=== PATIENT | male | born 1995 | race Caucasian/White ===

== ENCOUNTER 2020-08-21 21:19 | Inpatient (IN) | payer OTHER ==
[~2020-08-21] VITALS: Ht 175.3 cm; Wt 81.4 kg
[2020-08-21] MEDS ORDERED: ONDANSETRON 4MG/2ML VIAL IV ONE (21:55)
[2020-08-21] MEDS ORDERED: NS 1,000 ML IV ONE (21:55)
[2020-08-21] MEDS ORDERED: MORPHINE 4 MG/ML 1ML VIAL/SYRINGE (J2270) IV ONE (21:55)
[2020-08-21 22:52] LABS: BASO % 0.1 % (0.0-1.0); HEMATOCRIT 43.9 % (42.0-52.0); HEMOGLOBIN 14.8 g/dl (13.5-17.5); LYMPH # 0.5 10^3/uL (1.5-5.0); LYMPH % 2.7 % (24.0-44.0); MEAN CORPUSCULAR HEMOGLOBIN 30.1 pg (27.0-33.0); MEAN CORPUSCULAR HGB CONC 33.7 g/dl (32.0-36.5); MEAN CORPUSCULAR VOLUME 89.2 fl (80.0-96.0); MONO # 1.2 10^3/uL (0.0-0.8); MONO % 7.1 % (2.0-8.0); NEUTROPHILS % 89.6 % (36.0-66.0); PLATELET COUNT, AUTOMATED 220 10^3/uL (150-450); RED BLOOD COUNT 4.92 10^6/uL (4.30-6.10); WHITE BLOOD COUNT 16.8 10^3/uL (4.0-10.0)
[2020-08-21 23:02] LABS: INR 1.04; PROTHROMBIN TIME 13.9 SECONDS (12.5-14.3)
--- NOTE | 2020-08-21 23:25 | REPVR ---
PROCEDURE INFORMATION: Exam: CT Abdomen And Pelvis Without Contrast Exam date and time: 08/21/2020 10:46 PM Age: 24 years old Clinical indication: Abdominal pain; Localized; Right lower quadrant (rlq); Additional info: Rlq pain TECHNIQUE: Imaging protocol: Computed tomography of the abdomen and pelvis without contrast. Radiation optimization: All CT scans at this facility use at least one of these dose optimization techniques: automated exposure control; mA and/or kV adjustment per patient size (includes targeted exams where dose is matched to clinical indication); or iterative reconstruction. COMPARISON: No relevant prior studies available. FINDINGS: Lungs: No suspicious mass or airspace process in the visualized lung bases. Liver: Noncontrast liver shows no obvious lesion. Gallbladder and bile ducts: Gallstones are present in the gallbladder lumen. No adjacent fluid or duct dilatation. Pancreas: Noncontrast pancreas shows no obvious mass or adjacent fluid. Spleen: Noncontrast spleen shows no obvious focal deformity. Adrenal glands: Adrenal glands are normal in appearance. Kidneys and ureters: Kidneys show no stone or hydronephrosis. Stomach and bowel: No evidence of small bowel obstruction. Appendix: Appendix is abnormal. Appendicoliths are present the base of the appendix and the enlarged fluid-filled inflamed appendix extends posterior and retrocecal, with distal tip in the Dodge's pouch region. Appendix measures up to 2 cm in diameter with significant adjacent periappendiceal stranding and periappendiceal lymphadenopathy. No identifiable abscess. Periappendiceal fluid is present. Intraperitoneal space: No pneumoperitoneum. Vasculature: No aortic aneurysm. Lymph nodes: No enlarged lymph nodes. Urinary bladder: Urinary bladder appears normal. Reproductive: No overt enlargement of the prostate gland. Bones/joints: Bony structures show no acute fracture or destructive process. Exam limitations: Limited evaluation without enteric or IV contrast. IMPRESSION: Acute appendicitis involving a retrocecal appendix which measures nearly 2 cm in diameter, lying just caudal to the right kidney. No periappendiceal abscess . Perforation cannot be definitively excluded. Electronically signed by: Kade Gregory On 08/21/2020 23:25:36 PM
[2020-08-21 23:26] LABS: ALBUMIN 4.3 GM/DL (3.2-5.2); ALT/SGPT 17 U/L (12-78); BILIRUBIN,DIRECT 0.4 MG/DL (0.0-0.2); BILIRUBIN,TOTAL 3.1 MG/DL (0.2-1.0); BLOOD UREA NITROGEN 19 MG/DL (7-18); CALCIUM LEVEL 8.7 MG/DL (8.5-10.1); CARBON DIOXIDE LEVEL 29 MEQ/L (21-32); CHLORIDE LEVEL 102 MEQ/L (98-107); GLOMERULAR FILTRATION RATE > 60.0 (>60); GLUCOSE, FASTING 125 MG/DL (70-100); LIPASE 197 U/L (73-393); POTASSIUM SERUM 4.1 MEQ/L (3.5-5.1); SODIUM LEVEL 136 MEQ/L (136-145); TOTAL PROTEIN 7.8 GM/DL (6.4-8.2)
[2020-08-21] MEDS ORDERED: AMPICILLIN SOD/SULBACTAM SOD 3 GM in D5W MINI-BAG PLUS 100 ML IV ONE (23:40)
[2020-08-21] MEDS ORDERED: SIME125T PO (23:48)
[2020-08-21] MEDS ORDERED: MORPHINE 2 MG/ML 1ML VIAL (J2270) IV PRN (23:50)
[2020-08-22] MEDS ORDERED: BUPIVACAINE HCL 0.25% 30ML VIAL As Ordered ONE (00:35)
[2020-08-22] MEDS ORDERED: MORPHINE 4 MG/ML 1ML VIAL/SYRINGE (J2270) IV ONE (01:05)
[2020-08-22] MEDS ORDERED: LIDOCAINE 2% 100MG/5ML SDV (FOR ANES.) As Ordered ONE (01:23)
[2020-08-22] MEDS ORDERED: ROCURONIUM BROMIDE 50 MG/5 ML VIAL As Ordered ONE (01:23)
[2020-08-22] MEDS ORDERED: propofoL 200 MG/20 ML VIAL As Ordered ONE (01:23)
[2020-08-22] MEDS ORDERED: MIDAZOLAM INJ 2MG/2ML VIAL (J2250 PER 1MG) As Ordered ONE (01:24)
[2020-08-22] MEDS ORDERED: fentaNYL 250 MCG/5 ML INJECTION (J3010) As Ordered ONE (01:24)
[2020-08-22] MEDS: PIPERACILLIN/TAZOBACTAM SOD 3.375 GM in D5W MINI-BAG PLUS 50 ML IV SCH ×5 (01:42→23:20)
[2020-08-22] MEDS ORDERED: dexameTHASONE 4 MG/ML 1ML VIAL (J1100 PER 1MG) As Ordered ONE (01:50)
[2020-08-22] MEDS ORDERED: ACETAMINOPHEN 1000MG 100ML IV BTL (OFIRMEV) (J0131 PER 10MG) As Ordered ONE (01:51)
[2020-08-22] MEDS ORDERED: ONDANSETRON 4MG/2ML VIAL As Ordered ONE (01:51)
[2020-08-22] MEDS ORDERED: METOCLOPRAMIDE INJ 10MG/2ML VIAL (J2765 PER 1) As Ordered ONE (01:51)
[2020-08-22] MEDS ORDERED: KETOROLAC 60MG 2ML VIAL As Ordered ONE (01:51)
[2020-08-22] MEDS ORDERED: PHENYLephrine 500MCG 5ML (100MCG/ML) SYRINGE As Ordered ONE ×2 (01:52→02:05)
[2020-08-22] MEDS ORDERED: SUGAMMADEX SODIUM 500 MG/5 ML VIAL (BRIDION) As Ordered ONE (02:00)
[2020-08-22] MEDS ORDERED: MORPHINE 2 MG/ML 1ML VIAL (J2270) IV PRN (03:40)
[2020-08-22] MEDS ORDERED: ACETAMINOPHEN TAB 650MG DOSE (2X325MG) PO PRN (03:40)
[2020-08-22 07:20] VITALS: BP 104/67
[2020-08-22] MEDS: LR 1,000 ML IV SCH ×3 (07:46→15:46)
[2020-08-22 08:20] VITALS: BP 104/68
[2020-08-22 09:05] LABS: BASO % 0.1 % (0.0-1.0); HEMATOCRIT 36.3 % (42.0-52.0); HEMOGLOBIN 12.4 g/dl (13.5-17.5); LYMPH # 0.6 10^3/uL (1.5-5.0); LYMPH % 3.5 % (24.0-44.0); MEAN CORPUSCULAR HEMOGLOBIN 30.3 pg (27.0-33.0); MEAN CORPUSCULAR HGB CONC 34.2 g/dl (32.0-36.5); MEAN CORPUSCULAR VOLUME 88.8 fl (80.0-96.0); MONO % 5.9 % (2.0-8.0); NEUTROPHILS # 14.6 10^3/uL (1.5-8.5); NEUTROPHILS % 89.9 % (36.0-66.0); PLATELET COUNT, AUTOMATED 180 10^3/uL (150-450); RED BLOOD COUNT 4.09 10^6/uL (4.30-6.10); WHITE BLOOD COUNT 16.2 10^3/uL (4.0-10.0)
[2020-08-22 09:17] LABS: BLOOD UREA NITROGEN 19 MG/DL (7-18); CALCIUM LEVEL 7.6 MG/DL (8.5-10.1); CARBON DIOXIDE LEVEL 26 MEQ/L (21-32); CHLORIDE LEVEL 105 MEQ/L (98-107); GLOMERULAR FILTRATION RATE > 60.0 (>60); GLUCOSE, FASTING 138 MG/DL (70-100); POTASSIUM SERUM 4.3 MEQ/L (3.5-5.1); SODIUM LEVEL 136 MEQ/L (136-145)
[2020-08-22 10:00] VITALS: BP 102/57
[2020-08-22 14:00] VITALS: BP 107/66
[2020-08-22 18:00] VITALS: BP 97/55
[2020-08-22 20:00] VITALS: BP 121/67
[2020-08-22] MEDS: NORCO, ANEXSIA 5/325MG TABLET (HYDROcodone/ACETAMINOPHEN) PO PRN (23:12)
[2020-08-23] MEDS: LR 1,000 ML IV SCH ×2 (01:16→11:33)
[2020-08-23] MEDS: PIPERACILLIN/TAZOBACTAM SOD 3.375 GM in D5W MINI-BAG PLUS 50 ML IV SCH ×4 (05:31→23:35)
[2020-08-23] MEDS: NORCO, ANEXSIA 5/325MG TABLET (HYDROcodone/ACETAMINOPHEN) PO PRN ×3 (05:39→19:58)
[2020-08-23 05:57] VITALS: BP 141/88
[2020-08-23 06:41] LABS: BASO % 0.2 % (0.0-1.0); EOS % 0.2 % (0.0-3.0); HEMATOCRIT 38.1 % (42.0-52.0); HEMOGLOBIN 12.7 g/dl (13.5-17.5); LYMPH # 0.7 10^3/uL (1.5-5.0); LYMPH % 5.5 % (24.0-44.0); MEAN CORPUSCULAR HEMOGLOBIN 30.1 pg (27.0-33.0); MEAN CORPUSCULAR HGB CONC 33.3 g/dl (32.0-36.5); MEAN CORPUSCULAR VOLUME 90.3 fl (80.0-96.0); MONO # 0.8 10^3/uL (0.0-0.8); MONO % 6.7 % (2.0-8.0); NEUTROPHILS # 10.5 10^3/uL (1.5-8.5); NEUTROPHILS % 86.9 % (36.0-66.0); PLATELET COUNT, AUTOMATED 191 10^3/uL (150-450); RED BLOOD COUNT 4.22 10^6/uL (4.30-6.10); WHITE BLOOD COUNT 12.1 10^3/uL (4.0-10.0)
[2020-08-23 07:00] LABS: BLOOD UREA NITROGEN 19 MG/DL (7-18); CALCIUM LEVEL 7.9 MG/DL (8.5-10.1); CARBON DIOXIDE LEVEL 26 MEQ/L (21-32); CHLORIDE LEVEL 106 MEQ/L (98-107); CREATININE FOR GFR 1.04 MG/DL (0.70-1.30); GLOMERULAR FILTRATION RATE > 60.0 (>60); GLUCOSE, FASTING 103 MG/DL (70-100); SODIUM LEVEL 137 MEQ/L (136-145)
[2020-08-23] MEDS: ONDANSETRON 4MG/2ML VIAL IV PRN ×2 (11:33→17:54)
[2020-08-23 14:00] VITALS: BP 135/82
--- NOTE | 2020-08-23 15:30 | IPN ---
PROGRESS NOTE DATE: 08/23/2020 HISTORY: Patient is postoperative day 1-1/2 from a laparoscopic appendectomy for perforated retrocecal appendicitis with diffuse peritonitis involving the lower abdomen and pelvis. He remains on Zosyn for antibiotic coverage. He had been placed on some clear liquids yesterday, but had not really drunk much because of some abdominal bloating and nausea. Vital signs show that he has been afebrile over the past 24 hours. His pulse has ranged from the low 70s to 102 this morning. Blood pressure is normal. Intake and output show that yesterday he had 3200 in and his urine output has not been measured. PHYSICAL EXAMINATION: Patient is lying quietly on the hospital bed. He is alert, but reports feeling uncomfortable. Heart exam shows a regular rhythm. The lungs are clear. The abdomen is somewhat distended. He does have some bowel sounds present, more in the upper quadrants. His dressings are clean and dry and there is no redness in his incision sites. There is some mild tympany to percussion in his upper abdomen and some mild diffuse tenderness. LABORATORY STUDIES: Laboratory studies show a white count of 12, hemoglobin of 13, hematocrit of 38 and a platelet count of 191,000. Differential count shows 87% neutrophils and 6% lymphocytes. Chemistry profile shows a sodium of 137, potassium 4.0, chloride 106, CO2 26, BUN 19, creatinine 1.0 and a glucose of 103. IMPRESSION: Patient is doing acceptably 1-1/2 days postoperatively from laparoscopic appendectomy for a perforated appendicitis. He has had some nausea and abdominal distention consistent with a postoperative ileus, which would not be unexpected given his diffuse peritonitis. PLAN: We will continue the clear liquids, but he was advised not to drink if he was feeling full or nauseous. We will continue the antibiotics and serial labs. I advised him that it may take several days for his ileus to resolve and that he is at risk to develop an abscess.
[2020-08-23 18:00] VITALS: BP 136/84
--- NOTE | 2020-08-23 19:05 | RO ---
OPERATIVE NOTE DATE OF OPERATION: 08/22/2020 PREOPERATIVE DIAGNOSIS: Acute appendicitis. POSTOPERATIVE DIAGNOSIS: Acute appendicitis with perforation and diffuse peritonitis. PROCEDURE: Laparoscopic appendectomy with debridement of peritonitis. SURGEON: Rey Brumfield M.D. HR CONSULTANT: None. ANESTHESIA: General. INDICATIONS FOR THE PROCEDURE: The patient is a 24-year-old generally healthy man who presented to the emergency department with a roughly 1 1/2 to 2 day history of abdominal pain. This has become more severe and lead to his presentation to the emergency department. He was found to be markedly tender in the lower abdomen and a CT scan showed what was reported as a markedly dilated inflamed appendix with appendicolith. He is now for a laparoscopic appendectomy. OPERATIVE PROCEDURE: The patient was brought to the operating room and placed on the table in a supine position. He was placed under general endotracheal anesthesia. The patient's abdomen was prepped and draped in a sterile fashion. 25%. Marcaine was infiltrated at each of the trocar sites as needed. A short longitudinal midline incision was made above the umbilicus. This was depended though the subcutaneous tissues to the fascia. A Veress needle was inserted; and after a positive hanging drop test, the abdomen was inflated with carbon dioxide gas. When the abdomen was full inflated, the fascia was incised and a 12 mm port was placed without difficulty. The camera was inserted. Initially examination showed that there was marked inflammation of the peritoneal surfaces in the lower abdomen. There was pooling of some yellow green turbid fluid in the right and left pericolic gutters and down in the pelvis with inflammatory exudate noted on loops of the small bowel. Two 5 mm ports were placed in the left lower quadrant. A suction adult health clinical nurse specialist was inserted and the fluid in the abdomen was suctioned. Obvious collections of inflamed and infected fluid were irrigated and aspirated. After this initial cleanup, attention was turned to the cecum. The terminal ileum was identified. The terminal ileum was retracted superiorly and the cecum was rolled medially. The markedly inflamed perforated appendix was identified lying in the retroperitoneum posterior to the cecum. It was possible to free the tip of the appendix by blunt dissection. A hormonic scalpel was then obtained and used to divide the peritoneal attachments of the appendix and free this from the retroperitoneum. There was a clear cut perforation through the anterior aspect of the appendix. The appendix was transected at its junction with the cecum using a 45 mm endoscopic stapler. The appendix was placed in an Endopouch. The lower abdomen and pelvis were then copiously irrigated while the patient was maintained in a slight Trendelenburg position to better expose these areas. A large amount of purulent fluid was suctioned from the pelvis. The patient was then placed into a fairly sharp reverse Trendelenburg position and the upper abdomen was copiously irrigated allowing the fluid to drain to the pelvis. The fluid was then all suctioned from the pelvis. The patient appeared to tolerate the procedure well. He was returned to a flat position. The abdomen was deflated and the trocars were removed. The appendix was recovered through the supraumbilical site. The fascia was closed with interrupted simple sutures of 2-0 Vicryl. The skin incisions were all closed with buried sutures of 4-0 Vicryl and Steri-Strips. Light dressings were applied. The patient tolerated the procedure well without apparent complication. He was awakened in the operating room, extubated and moved to the recovery room in stable condition.
[2020-08-23 19:52] VITALS: BP 123/75
[2020-08-23] MEDS: KETOROLAC 30 MG/ML 1ML VIAL IV PRN (23:35)
[2020-08-24] MEDS: LR 1,000 ML IV SCH ×2 (04:59→17:36)
[2020-08-24] MEDS: PIPERACILLIN/TAZOBACTAM SOD 3.375 GM in D5W MINI-BAG PLUS 50 ML IV SCH ×3 (05:29→18:30)
[2020-08-24 06:08] VITALS: BP 108/72
[2020-08-24 07:19] LABS: BASO % 0.1 % (0.0-1.0); EOS # 0.1 10^3/uL (0.0-0.5); EOS % 1.1 % (0.0-3.0); HEMATOCRIT 36.1 % (42.0-52.0); HEMOGLOBIN 11.8 g/dl (13.5-17.5); LYMPH # 1.1 10^3/uL (1.5-5.0); LYMPH % 13.2 % (24.0-44.0); MEAN CORPUSCULAR HEMOGLOBIN 29.6 pg (27.0-33.0); MEAN CORPUSCULAR HGB CONC 32.7 g/dl (32.0-36.5); MEAN CORPUSCULAR VOLUME 90.7 fl (80.0-96.0); MONO # 0.8 10^3/uL (0.0-0.8); MONO % 9.6 % (2.0-8.0); NEUTROPHILS # 6.2 10^3/uL (1.5-8.5); NEUTROPHILS % 75.6 % (36.0-66.0); PLATELET COUNT, AUTOMATED 201 10^3/uL (150-450); RED BLOOD COUNT 3.98 10^6/uL (4.30-6.10); WHITE BLOOD COUNT 8.2 10^3/uL (4.0-10.0)
[2020-08-24] MEDS ORDERED: INFLUENZA QUADRIVALENT PF VACCINE 0.5ML SYRINGE IM ONE (09:00)
--- NOTE | 2020-08-24 12:57 | IPNPDOC ---
Text Note Date of Service The patient was seen on 08/24/20. NOTE Reports feeling mildly better than yesterday, starting to pass flatus. on harleen rs, but not much appetite afebrile on exam looks comfortable lungs sounds clear anteriorly nontachycardic abdomen remains mild to moderately distended, soft, hypoactive bs, nontender on palpation, 3 port sites with dry dressings impression perforated appendicitis pod 3 lap appendectomy postop ileus will check an xray will try on soft foods patient instructed to ambulate the hallways continue abx VS,Fishbone, I+O VS, Fishbone, I+O Laboratory Tests 08/24/20 06:45 Vital Signs Date Time Temp Pulse Resp B/P (MAP) Pulse Ox O2 Delivery O2 Flow Rate FiO2 08/24/20 06:08 98.8 81 20 108/72 (84) 96 Room Air I&O- Last 24 Hours up to 6 AM 08/24/20 06:00 Intake Total 1370 ml Output Total 0 ml Balance 1370 ml PACHECO ELLIOTT MD Aug 24, 2020 12:57
[2020-08-24 14:00] VITALS: BP 130/85
--- NOTE | 2020-08-24 14:05 | REP ---
INDICATION: postop distention. COMPARISON: Abdomen/pelvis CT dated 08/21/2020. TECHNIQUE: Two supine views of the abdomen and pelvis. FINDINGS: The small bowel is air-filled and diffusely distended as a change from the comparison study. This could represent ileus or bowel obstruction. There is a faintly visible surgical staple line in the abdominal right lower quadrant. There are no calcifications. The skeletal structures are unremarkable. IMPRESSION: Diffusely dilated small bowel loops, ileus versus obstruction. <Electronically signed by Gustavo Shields > 08/24/20 [id number]
[2020-08-24] MEDS: ONDANSETRON 4MG/2ML VIAL IV PRN (18:30)
[2020-08-24 20:53] VITALS: BP 130/80
[2020-08-24] MEDS: KETOROLAC 30 MG/ML 1ML VIAL IV PRN (21:19)
[2020-08-25] MEDS: PIPERACILLIN/TAZOBACTAM SOD 3.375 GM in D5W MINI-BAG PLUS 50 ML IV SCH ×4 (00:38→18:16)
[2020-08-25] MEDS: ONDANSETRON 4MG/2ML VIAL IV PRN (00:38)
[2020-08-25 05:43] VITALS: BP 135/85
[2020-08-25 07:00] LABS: BASO % 0.1 % (0.0-1.0); EOS # 0.1 10^3/uL (0.0-0.5); HEMATOCRIT 35.1 % (42.0-52.0); HEMOGLOBIN 11.7 g/dl (13.5-17.5); LYMPH # 0.9 10^3/uL (1.5-5.0); LYMPH % 12.6 % (24.0-44.0); MEAN CORPUSCULAR HEMOGLOBIN 29.8 pg (27.0-33.0); MEAN CORPUSCULAR HGB CONC 33.3 g/dl (32.0-36.5); MEAN CORPUSCULAR VOLUME 89.5 fl (80.0-96.0); MONO # 0.7 10^3/uL (0.0-0.8); MONO % 10.1 % (2.0-8.0); NEUTROPHILS # 5.5 10^3/uL (1.5-8.5); NEUTROPHILS % 75.9 % (36.0-66.0); PLATELET COUNT, AUTOMATED 246 10^3/uL (150-450); RED BLOOD COUNT 3.92 10^6/uL (4.30-6.10); WHITE BLOOD COUNT 7.2 10^3/uL (4.0-10.0)
[2020-08-25] MEDS: LR 1,000 ML IV SCH (08:36)
[2020-08-25 14:00] VITALS: BP 130/79
[2020-08-25 22:00] VITALS: BP 130/80
[2020-08-26] MEDS: PIPERACILLIN/TAZOBACTAM SOD 3.375 GM in D5W MINI-BAG PLUS 50 ML IV SCH ×4 (00:11→17:45)
[2020-08-26] MEDS: LR 1,000 ML IV SCH (01:24)
[2020-08-26 06:00] VITALS: BP 121/77
[2020-08-26 06:49] LABS: BASO % 0.2 % (0.0-1.0); EOS # 0.1 10^3/uL (0.0-0.5); EOS % 1.2 % (0.0-3.0); HEMATOCRIT 36.9 % (42.0-52.0); HEMOGLOBIN 12.3 g/dl (13.5-17.5); LYMPH # 1.3 10^3/uL (1.5-5.0); MEAN CORPUSCULAR HEMOGLOBIN 29.8 pg (27.0-33.0); MEAN CORPUSCULAR HGB CONC 33.3 g/dl (32.0-36.5); MEAN CORPUSCULAR VOLUME 89.3 fl (80.0-96.0); MONO # 0.8 10^3/uL (0.0-0.8); MONO % 12.1 % (2.0-8.0); NEUTROPHILS # 4.2 10^3/uL (1.5-8.5); NEUTROPHILS % 65.7 % (36.0-66.0); PLATELET COUNT, AUTOMATED 251 10^3/uL (150-450); RED BLOOD COUNT 4.13 10^6/uL (4.30-6.10); WHITE BLOOD COUNT 6.5 10^3/uL (4.0-10.0)
[2020-08-26] MEDS ORDERED: IBUPROFEN 600MG TAB PO PRN (08:25)
[2020-08-26 10:00] VITALS: BP 124/73
[2020-08-26 14:00] VITALS: BP 123/77
[2020-08-26 22:00] VITALS: BP 139/96
[2020-08-27] MEDS: PIPERACILLIN/TAZOBACTAM SOD 3.375 GM in D5W MINI-BAG PLUS 50 ML IV SCH ×3 (00:46→13:17)
[2020-08-27 06:45] VITALS: BP 128/70
--- NOTE | 2020-08-27 09:02 | IPN ---
PROGRESS NOTE DATE: 08/26/2020 HISTORY: The patient is now postoperative day 4-2 from a laparoscopic appendectomy for perforated appendicitis with peritonitis. He has had a return of bowel function and has remained generally afebrile though an abdominal x-ray on the showed diffuse air throughout the GI tract. Vital signs showed that he has been afebrile over the past 24 hours. His pulse is in the 60s and low 70s. Blood pressure is excellent. Intake and output for yesterday showed 2400 in with seven voids and four bowel movements recorded. OBJECTIVE: The patient is lying quietly on the hospital bed. He reports that he is fairly comfortable but has been having multiple bowel movements. Heart exam shows a regular rate and rhythm. The lungs are clear. The abdomen remains mildly distended. He does have bowel sounds present but he has some tympany to percussion particularly across the mid and upper abdomen. The abdomen is somewhat softer than it has been. His incisions are clean and dry. Laboratory studies today show a white count of 6, hemoglobin 12, hematocrit 37 and a platelet count of 251,000. Differential count shows 66% neutrophils, 20% lymphocytes and 12% monocytes. IMPRESSION: Patient is making progress and has had a return of bowel function with multiple soft or loose stools. He remains mildly distended with evidence for some intraintestinal air. He reports that he has not been eating well but is going to try some food today. PLAN: I will stop the patient's IV fluid. His antibiotics will be continued. We will see how he does with a diet today. His white count has returned to normal and his differential count is normalizing. If there is continuing concern about a possible intraabdominal abscess, a CT scan will be required.
[2020-08-27 14:00] VITALS: BP 133/76
--- NOTE | 2020-08-28 08:32 | IPN ---
PROGRESS NOTE DATE: 08/27/2020 SUBJECTIVE: The patient is now 5 1/2 days postop from a laparoscopic appendectomy for a perforated appendicitis with diffuse peritonitis of the lower abdomen and pelvis. He has had some issues with an ileus over the last few days. He reports he has been having a lot of flatus and has had multiple smaller loose bowel movements over the last two days. He is feeling pretty good today by his report and tolerated regular food yesterday much better. Vital signs shows that he has been afebrile over the past 24 hours, his pulse is in the 50s to 70s generally. His blood pressure is good. Intake and output shows that yesterday he had 2300 recorded in and his output was not measured. It is noted that he had four voids and five bowel movements yesterday. OBJECTIVE: GENERAL: The patient is lying quietly on the hospital bed. He is alert and oriented. HEART AND LUNG EXAM: Unremarkable. ABDOMEN: Flat. His three incisions are healing well with no sign of infection or hematoma. He has active bowel sounds. The abdomen is soft and without undue tenderness. It is clearly much less full than it had been yesterday. LABORATORY DATA: The patient had no new labs today. IMPRESSION: Patient's bowel function has returned. His abdomen which was quite distended over the last few days has decompressed nicely and remains soft and without undue tenderness. The incisions are healing well. PLAN: Patient will be discharged home today. I will stop his antibiotics as his white count has been back in the normal range since the august. He was counseled that he can shower ad pernell. He can pursue light activities but no strenuous activities or heavy lifting. He can eat a regular diet. He is to contact my office for any problems but otherwise follow-up in the office in 7 to 10 days. He will likely need placement on convalescent leave or quarters for the next week to 10 days while he continues to heal. If there are any problems he should contact my office directly.
== END 2020-08-27 15:58 | disposition home or self-care (01) | DRG 339 ==
LOC: M ED 21:19 → EDSEX 21:19 → M SDC 23:46 → ENRESERV 08-22 02:27 → M MS5PR 08-22 03:38 → M ED INP 08-22 03:38 → M SDC 08-22 04:36
PROVIDERS: ADMIT Surgery; ATTEND Surgery
PROC: 0DTJ4ZZ Resection of Appendix, Percutaneous Endoscopic Approach (ICD-10-PCS; principal; 2020-08-22 00:30)
DX: K35.32 Acute appendicitis with perforation, localized peritonitis, and gangrene, without abscess (principal); K56.7 Ileus, unspecified